=== PATIENT | male | born 1990 | race Caucasian/White ===

== ENCOUNTER → 2016-08-15 | Outpatient (CLI) | payer OTHER ==
--- NOTE | 2016-08-15 14:45 | MR ---
EXAMINATION TYPE: MR tspine/lspine wo con DATE OF EXAM: 08/15/2016 2:17 PM COMPARISON: Prior MRI lumbar spine October 09, 2008. HISTORY: Cervicalgia, thoracic spine pain, low back pain, bilateral lower extremity pain, and possibl e fibromyalgia all per order. Contrast in mid to low back pain for years per patient. TECHNIQUE: Multiplanar, multisequence imaging of thoracic and lumbar spine are performed without cont rast. FINDINGS: T-SPINE: Spinal cord shows normal course, caliber, and signal as it courses the thoracic spine. Vertebral bod y heights and alignment are satisfactory. Disc space heights are fairly well-maintained. Some small p osterior disc herniations are seen in the mid to lower thoracic spine most prominent disc herniation noted T10-T11 level on sagittal image 8. Additional small posterior disc herniations are seen at T7-T 8 and T8-T9 levels. Bone marrow signal intensity is preserved. There is mild multilevel anterior spur ring. There is suggestion of anterior epidural process or lesion T6 mid vertebral body level on sagit stephanie image 8 but this does not reproduce on repeat imaging and is presumed artifactual. Review of the axial images shows additional small right paracentral disc protrusion effacing anterola teral thecal sac at T9-T10 level on image 8 series 601 There is mild to moderate broad-based posterior disc protrusion effacing anterior thecal sac and mild to moderate ligamentous flavum hypertrophy effacing posterior lateral thecal sac on axial image 5 se marco antonio 601 at T10-T11 level. There is mild broad-based posterior disc protrusion and facet arthropathy effacing anterior posterior lateral thecal sac at T12-L1 level on axial image 12. IMPRESSION: Some multilevel degenerative changes in the mid to lower thoracic spine with most pronoun anali findings at T10-T11 level noted as detailed above. L-SPINE: FINDINGS: Sagittal images of the lumbar spine show vertebral body heights and alignment to appear sat isfactory. The intervertebral discs demonstrate normal heights and hydration. No significant posterio r disc herniations are seen on sagittal images. The conus medullaris is normal in position and signal ending at superior L1 vertebral body level. The bone marrow signal intensity is within normal limit s. Axial images show no focal disc disease, or facet degenerative change at any lumbar level. There is no spinal canal stenosis, neural foraminal narrowing, or evidence of nerve root compromise. IMPRESSION: Negative MRI of the lumbar spine. Unremarkable study, no significant change from prior M RI.
== END | disposition home or self-care (01) ==
LOC: RADMRIMAIN 12:06
PROVIDERS: ATTEND Orthopaedic Surgery Orthopaedic Surgery of the Spine
DX: M54.5 Low back pain (principal); M54.6 Pain in thoracic spine
CPT/HCPCS: 72146; 72148

== ENCOUNTER → 2016-10-19 | Outpatient (CLI) | payer OTHER ==
[2016-10-19 17:38] LABS: Basophils % (A) 0 %; CH 31.9; CHCM 33.6; Eosinophils # (A) 0.1 k/uL (0-0.7); Eosinophils % (A) 2 %; HCT 47.9 % (39.0-53.0); HDW 2.44; Luc # (Auto) 0.26; Luc % (Auto) 3; Lymphocytes # (A) 2.1 k/uL (1.0-4.8); Lymphocytes % (A) 23 %; MCH 31.8 pg (25.0-35.0); MCHC 33.3 g/dL (31.0-37.0); MCV 95.4 fL (80.0-100.0); Mean Platelet Volume 7.2; Monocytes # (A) 0.7 k/uL (0-1.0); Monocytes % (A) 7 %; Neutrophils # (A) 6.2 k/uL (1.3-7.7); Neutrophils % (A) 65 %; RBC 5.02 m/uL (4.30-5.90); RDW 13.3 % (11.5-15.5); WBC 9.4 k/uL (3.8-10.6); WBC (Perox) 9.55
[2016-10-19 18:02] LABS: ALT 46 U/L (21-72); AST 24 U/L (17-59); Alkaline Phosphatase 66 U/L (38-126); Anion Gap 12 mmol/L; Blood Urea Nitrogen 20 mg/dL (9-20); C Reactive Protein <5.0 mg/L (<10.0); Calcium 9.5 mg/dL (8.4-10.2); Carbon Dioxide 26 mmol/L (22-30); Chloride 104 mmol/L (98-107); Creatine Kinase 66 U/L (55-170); Glucose 93 mg/dL (74-99); Non-African American GFR(MDRD) >60 (>60 ml/min/1.73 sqM); Potassium 4.4 mmol/L (3.5-5.1); Rheumatoid Factor, Qnt <9 IU/mL (<12); Sodium 142 mmol/L (137-145); Total Bilirubin 0.5 mg/dL (0.2-1.3); Total Protein 7.9 g/dL (6.3-8.2)
[2016-10-19 19:25] LABS: Erythrocyte Sedimentation Rate 2 mm/hr (0-15)
== END | disposition home or self-care (01) ==
LOC: LABWHC1 17:12
PROVIDERS: ATTEND Physician Assistant
DX: M13.0 Polyarthritis, unspecified (principal); E05.90 Thyrotoxicosis, unspecified without thyrotoxic crisis or storm; M79.1 Myalgia
CPT/HCPCS: 36415; 80053; 82085; 82088; 82550; 84439; 84443; 84481; 85025; 85652; 86038; 86140; 86431

== ENCOUNTER 2017-01-12 13:33 | Emergency (ER) | payer OTHER ==
[2017-01-12] MEDS ORDERED: ONDANSETRON 4 MG/2 ML VIAL IVP STA (14:46)
[2017-01-12] MEDS ORDERED: SODIUM CHLORIDE 0.9% 2,000 ML IV STA (14:46)
[2017-01-12] MEDS ORDERED: RX INFO: IV CONTRAST WAS GIVEN 1 EACH MISC MISCELLANE PRN (14:46)
[2017-01-12] MEDS ORDERED: MORPHINE SULFATE 4 MG/ML SYRINGE IV STA (14:46)
--- NOTE | 2017-01-12 14:51 | ED ---
Abdominal Pain HPI - General Chief Complaint: Abdominal Pain Stated Complaint: Abd Pain Source: patient Mode of arrival: ambulatory Limitations: no limitations - History of Present Illness Initial Comments: Patient is a 26-year-old male who presents for evaluation for generalized abdominal pain that is progressively worsening over the last 2 days. Past medical history as below. Patient stated that the pain started roughly 2 days ago. He has associated nausea and vomiting. He has had 5 episodes of emesis which was mainly's stomach contents. No sick contacts. Denies any trauma to the abdomen. He had a normal bowel movement this morning. He has decreased appetite over this time.. Laying down seems to make the pain better. Getting up moving around and walking seems to make the pain worse. He is passing gas. There is a strong family history of gallbladder issues. Smokes marijuana occasionally but nothing recently. Smokes cigarettes. No alcohol use. He denies fever, chills, headache, changes of vision, URI symptoms, shortness breath, cough, chest pain, diarrhea, pain or burning with urination. - Related Data Previous Rx's Medication Instructions Recorded Ondansetron Odt [Zofran Odt] 4 mg PO TID PRN #10 tab 01/12/17 Allergies Allergy/AdvReac Type Severity Reaction Status Date / Time sulfamethoxazole Allergy Unknown Verified 01/12/17 15:10 [From Bactrim] trimethoprim [From Bactrim] Allergy Unknown Verified 01/12/17 15:10 Review of Systems ROS Statement: Those systems with pertinent positive or pertinent negative responses have been documented in the HPI. ROS Other: All systems not noted in ROS Statement are negative. Past Medical History Past Medical History: No Reported History History of Any Multi-Drug Resistant Organisms: None Reported Past Surgical History: No Surgical Hx Reported Past Psychological History: Depression Smoking Status: Current every day smoker Past Alcohol Use History: None Reported Past Drug Use History: None Reported General Exam Limitations: no limitations General appearance: alert, in no apparent distress, other (In position on his left side complaining of pain.) Head exam: Present: atraumatic, normocephalic, normal inspection Eye exam: Present: normal appearance, PERRL, EOMI. Absent: scleral icterus, conjunctival injection, periorbital swelling ENT exam: Present: normal exam, mucous membranes dry, mucous membranes moist Neck exam: Present: normal inspection. Absent: tenderness, meningismus, lymphadenopathy Respiratory exam: Present: normal lung sounds bilaterally. Absent: respiratory distress, wheezes, rales, rhonchi, stridor Cardiovascular Exam: Present: regular rate, normal rhythm, normal heart sounds. Absent: systolic murmur, diastolic murmur, rubs, gallop, clicks GI/Abdominal exam: Present: soft, tenderness, normal bowel sounds, hypoactive bowel sounds, other (Tenderness with palpation just above the umbilicus and to the left of the umbilicus. He has a somewhat firm abdomen but non-peritoneal. No rebound tenderness. Negative McBurney sign. Negative Eduardo sign. Negative Rovsing sign.). Absent: distended, guarding, rebound, rigid Extremities exam: Present: normal inspection, full ROM, normal capillary refill. Absent: tenderness, pedal edema, joint swelling, calf tenderness Back exam: Present: normal inspection, other (No midline tenderness.) Neurological exam: Present: alert, oriented X3, CN II-XII intact Psychiatric exam: Present: normal affect, normal mood Skin exam: Present: warm, dry, intact, normal color. Absent: rash Course Vital Signs 01/12/17 01/12/17 01/12/17 14:04 16:00 16:20 Temperature 98.1 F 98.1 F 98.7 F Pulse Rate 57 L 52 L 52 L Respiratory 17 18 15 Rate Blood Pressure 137/90 131/72 135/71 O2 Sat by Pulse 100 Oximetry Medical Decision Making - Medical Decision Making 1445: Patient is a 26-year-old male who presents for evaluation for 2 day's history of progressively worsening abdominal pain with associated nausea and vomiting. History is somewhat concerning for retrocecal appendicitis versus gallbladder pathology. However his physical exam is not consistent with either. His abdomen is somewhat firm. There are hypoactive bowel sounds. He had a normal bowel movement this morning though. Because of the inconsistent physical exam, will order CT abdomen and pelvis with IV contrast. We'll also order abdominal labs with 2 L IV fluid bolus for dry mucous membranes, morphine , Zofran and reevaluate. 1520: CBC within normal limits. Awaiting CT imaging and rest of laboratory studies. 1552: Reviewed CT imaging. No acute inflammatory process. There were noted to have some dilated small bowel loops but no signs of obstruction. No free air. Normal-appearing appendix. Laboratory studies within normal limits. Discussed all the results with the patient. Discussed signs and symptoms of acute appendicitis and gallbladder pathology. Encourage close follow-up with primary care physician. Preferably in the next couple of days. Keep up with fluids. [place] diet. We'll discharge home with Zofran. I reevaluated his abdomen is soft. The pain is cut in half per the patient. No longer nauseous or vomiting. He is comfortable with discharge home and follow-up. I discussed further signs and symptoms on when to return to emergency department for further evaluation. He is comfortable with discharge home and will follow-up. - Lab Data Result diagrams: 01/12/17 15:00 01/12/17 15:00 Lab Results 01/12/17 01/12/17 01/12/17 Range/Units 15:00 15:00 16:00 WBC 10.9 H (3.8-10.6) k/uL RBC 5.05 (4.30-5.90) m/uL Hgb 15.8 (13.0-17.5) gm/dL Hct 45.3 (39.0-53.0) % MCV 89.6 (80.0-100.0) fL MCH 31.2 (25.0-35.0) pg MCHC 34.8 (31.0-37.0) g/dL RDW 13.2 (11.5-15.5) % Plt Count 240 (150-450) k/uL Neutrophils % 73 % Lymphocytes % 15 % Monocytes % 8 % Eosinophils % 1 % Basophils % 0 % Neutrophils # 8.0 H (1.3-7.7) k/uL Lymphocytes # 1.7 (1.0-4.8) k/uL Monocytes # 0.9 (0-1.0) k/uL Eosinophils # 0.1 (0-0.7) k/uL Basophils # 0.0 (0-0.2) k/uL Sodium 142 (137-145) mmol/L Potassium 4.1 (3.5-5.1) mmol/L Chloride 106 (98-107) mmol/L Carbon Dioxide 26 (22-30) mmol/L Anion Gap 10 mmol/L BUN 13 (9-20) mg/dL Creatinine 0.97 (0.66-1.25) mg/dL Est GFR (MDRD) Af Amer >60 (>60 ml/min/1.73 sqM) Est GFR (MDRD) Non-Af >60 (>60 ml/min/1.73 sqM) Glucose 92 (74-99) mg/dL Calcium 9.2 (8.4-10.2) mg/dL Total Bilirubin 0.5 (0.2-1.3) mg/dL AST 18 (17-59) U/L ALT 42 (21-72) U/L Alkaline Phosphatase 69 (38-126) U/L Total Protein 7.1 (6.3-8.2) g/dL Albumin 4.3 (3.5-5.0) g/dL Lipase 56 (23-300) U/L Urine Color Yellow Urine Appearance Clear (Clear) Urine pH 6.5 (5.0-8.0) Ur Specific [place] 1.024 (1.001-1.035) Urine Protein Negative (Negative) Urine Glucose (UA) Negative (Negative) Urine Ketones Negative (Negative) Urine Blood Negative (Negative) Urine Nitrite Negative (Negative) Urine Bilirubin Negative (Negative) Urine Urobilinogen <2.0 (<2.0) mg/dL Ur Leukocyte Esterase Negative (Negative) Disposition Clinical Impression: Nausea and vomiting, Abdominal pain Disposition: HOME SELF-CARE Instructions: Abdominal Pain (ED) Prescriptions: Ondansetron Odt [Zofran Odt] 4 mg PO TID PRN #10 tab PRN Reason: Nausea And Vomiting Referrals: Leoncio Ward MD [Primary Care Provider] - 1-2 days
[2017-01-12 15:12] LABS: Basophils % (A) 0 %; CH 31.3; CHCM 35.1; Eosinophils # (A) 0.1 k/uL (0-0.7); Eosinophils % (A) 1 %; HCT 45.3 % (39.0-53.0); HDW 2.49; HGB 15.8 gm/dL (13.0-17.5); Luc # (Auto) 0.23; Luc % (Auto) 2; Lymphocytes # (A) 1.7 k/uL (1.0-4.8); Lymphocytes % (A) 15 %; MCH 31.2 pg (25.0-35.0); MCHC 34.8 g/dL (31.0-37.0); MCV 89.6 fL (80.0-100.0); Mean Platelet Volume 7.4; Monocytes # (A) 0.9 k/uL (0-1.0); Monocytes % (A) 8 %; Neutrophils % (A) 73 %; RBC 5.05 m/uL (4.30-5.90); RDW 13.2 % (11.5-15.5); WBC 10.9 k/uL (3.8-10.6); WBC (Perox) 10.75
[2017-01-12 15:21] LABS: ALT 42 U/L (21-72); AST 18 U/L (17-59); Alkaline Phosphatase 69 U/L (38-126); Anion Gap 10 mmol/L; Blood Urea Nitrogen 13 mg/dL (9-20); Calcium 9.2 mg/dL (8.4-10.2); Carbon Dioxide 26 mmol/L (22-30); Chloride 106 mmol/L (98-107); Glucose 92 mg/dL (74-99); Non-African American GFR(MDRD) >60 (>60 ml/min/1.73 sqM); Potassium 4.1 mmol/L (3.5-5.1); Sodium 142 mmol/L (137-145); Total Bilirubin 0.5 mg/dL (0.2-1.3); Total Protein 7.1 g/dL (6.3-8.2)
--- NOTE | 2017-01-12 15:38 | CT ---
EXAMINATION TYPE: CT abdomen pelvis w con DATE OF EXAM: 01/12/2017 COMPARISON: NONE HISTORY: LUQ pain, nausea CT DLP: 422.5 mGycm CONTRAST: CT scan of the abdomen and pelvis is performed without Oral Contrast and with IV Contrast, patient in jected with 100 mL of Omnipaque 300. FINDINGS: LUNG BASES-: No visible nodule. No infiltrate. LIVER/GB: No calcified gallstones. No space occupying hepatic lesion. Biliary tree is of normal ca liber. PANCREAS: No inflammation. No distinct mass. SPLEEN: No splenic enlargement. No lesion seen. ADRENALS: No nodule. No thickening. KIDNEYS/BLADDER: No hydronephrosis. No nephrolithiasis. No disctinct renal mass. Urinary bladder g rossly unremarkable. BOWEL: Normal appendix. Fluid distended mid and distal small bowel loops and right hemicolon. The fin dings are nonspecific and could be related to gastroenteritis. No evidence for obstruction. No free a ir or free fluid. Small sliding-type. GENITAL ORGANS: No gross abnormality. LYMPH NODES: No greater than 1cm abdominal or pelvic lymph nodes are appreciated. AORTA: No significant abnormality. OSSEOUS STRUCTURES: No significant abnormality is seen. OTHER: No significant additional abnormality is seen. IMPRESSION: 1. Fluid distended mid and distal small bowel loops and right hemicolon. The findings are nonspecific and could be related to gastroenteritis.
[2017-01-12 16:01] VITALS: PULSE 52
[2017-01-12 16:22] VITALS: BP 135/71; RESP 15; TEMP 98.7
[2017-01-12 16:25] LABS: Appearance,Urine Clear (Clear); Bilirubin,Urine Negative (Negative); Glucose,Urine (UA) Negative (Negative); Ketones,Urine Negative (Negative); Leukocyte Esterase,Urine Negative (Negative); Nitrite,Urine Negative (Negative); PH, Urine 6.5 (5.0-8.0); Protein,Urine Negative (Negative); Specific Gravity,Urine 1.024 (1.001-1.035); UA Billing (MACRO vs. MICRO) CHEM; Urobilinogen,Urine <2.0 mg/dL (<2.0)
== END 2017-01-12 17:13 | disposition home or self-care (01) ==
LOC: SUPCPDRO 13:33 → EC 13:33
DX: R10.84 Generalized abdominal pain (principal); R11.2 Nausea with vomiting, unspecified; R63.8 Other symptoms and signs concerning food and fluid intake; K63.89 Other specified diseases of intestine; F17.210 Nicotine dependence, cigarettes, uncomplicated; Z88.1 Allergy status to other antibiotic agents; Z83.79 Family history of other diseases of the digestive system
CPT/HCPCS: 36415; 80053; 83690; 85025; 81003; 74177; 99284; 96374; 96375; 96361 ×2; J2270; J2405; Q9967

== ENCOUNTER → 2017-02-06 | Outpatient (CLI) | payer OTHER ==
--- NOTE | 2017-02-06 14:05 | MR ---
EXAMINATION TYPE: MR cervical spine wo con DATE OF EXAM: 02/06/2017 COMPARISON: NONE HISTORY: Chronic neck pain TECHNIQUE: Multiplanar, multisequence images of the cervical spine were acquired. C2-C3: No evidence for degenerative disc disease. No disc bulge/herniation or protrusion. No Canal stenosis. Foramina are patent bilaterally. C3-C4: No evidence for degenerative disc disease. No disc bulge/herniation or protrusion. No Canal stenosis. Foramina are patent bilaterally. C4-C5: There is a small central posterior disc osteophyte complex. The central canal is patent. No ne ural foraminal narrowing. C5-C6: There is a left eccentric disc herniation effacing the ventral thecal sac and abutting the bo tral cord. No abnormal cord signal. This creates mild left neural foraminal narrowing. C6-C7: There is a small central disc herniation narrowing the ventral thecal space and creating mild central canal stenosis. No neural foraminal narrowing. No abnormal cord signal. C7-T1: No evidence for degenerative disc disease. No disc bulge/herniation or protrusion. No Canal stenosis. Foramina are patent bilaterally. Cervical segments are intact. There is normal alignment. Cervical spinal cord is of normal signal. Craniovertebral junction relationships are within normal limits. IMPRESSION: 1. Left eccentric disc herniation creating mild central canal stenosis and mild left neural foraminal narrowing at C5-C6. 2. Small central disc herniation creating mild central canal stenosis at C6-C7.
== END | disposition home or self-care (01) ==
LOC: RADMRIMAIN 12:25
PROVIDERS: ATTEND Psychiatry & Neurology Neurology
DX: M99.71 Connective tissue and disc stenosis of intervertebral foramina of cervical region (principal); M50.322 Other cervical disc degeneration at C5-C6 level
CPT/HCPCS: 72141

== ENCOUNTER → 2017-10-07 | Outpatient (CLI) | payer OTHER ==
--- NOTE | 2017-10-07 15:02 | MR ---
EXAMINATION TYPE: MR cervical spine wo con DATE OF EXAM: 10/07/2017 COMPARISON: NONE HISTORY: Neck pain, headaches, BUE weakness x 2 years TECHNIQUE: Multiplanar, multisequence images of the cervical spine were acquired. C2-C3: No evidence for degenerative disc disease. No disc bulge/herniation or protrusion. No Canal stenosis. Foramina are patent bilaterally. C3-C4: No evidence for degenerative disc disease. No disc bulge/herniation or protrusion. No Canal stenosis. Foramina are patent bilaterally. C4-C5: There is a small central disc protrusion. Mild effacement of thecal sac. Mild bilateral uncove rtebral joint hypertrophy. No canal stenosis or foraminal encroachment. C5-C6: There is a broad-based central and left paracentral disc herniation with moderate effacement of thecal sac. Neural foramina are patent. Disc desiccation noted. C6-C7: Disc desiccation with a broad-based central disc protrusion or herniation resulting in moderat e effacement of thecal sac and abutting the anterior margin the spinal cord C7-T1: No evidence for degenerative disc disease. No disc bulge/herniation or protrusion. No Canal stenosis. Foramina are patent bilaterally. Cervical segments are intact. There is normal alignment. Cervical spinal cord is of normal signal. Craniovertebral junction relationships are within normal limits. IMPRESSION: 1. At C5-C6: There is a broad-based central and left paracentral disc herniation with moderate effac ement of thecal sac. Neural foramina are patent. 2. Broad-based central disc protrusion or herniation C6-C7 with moderate effacement of thecal sac and abutting the anterior margin of the spinal cord. No foraminal encroachment. 3. Small focal central disc protrusion C4-C5 effacing the thecal sac but no foraminal encroachment or spinal cord contact.
== END | disposition home or self-care (01) ==
LOC: RADMRIMAIN 13:36
PROVIDERS: ATTEND Neurological Surgery
DX: M50.221 Other cervical disc displacement at C4-C5 level (principal)
CPT/HCPCS: 72141

== ENCOUNTER 2018-02-12 18:05 | Emergency (ER) | payer OTHER ==
[2018-02-12 18:23] VITALS: RESP 18
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
[2018-02-12 21:21] VITALS: BP 119/70; PULSE 57; TEMP 98.1
== END 2018-02-12 21:21 | disposition home or self-care (01) ==
LOC: EC 18:05
DX: F32.9 Major depressive disorder, single episode, unspecified (principal); R45.851 Suicidal ideations; F17.200 Nicotine dependence, unspecified, uncomplicated; Z79.899 Other long term (current) drug therapy; Z88.2 Allergy status to sulfonamides
CPT/HCPCS: 82075; 99285

== ENCOUNTER 2018-02-14 12:03 | Emergency (ER) | payer OTHER ==
[2018-02-14 13:50] LABS: Amphetamine Screen,Urine Not Detected (NotDetected); Barbiturate Screen,Urine Not Detected (NotDetected); Benzodiazepines Screen,Urine Detected (NotDetected); Cocaine Screen,Urine Not Detected (NotDetected); Methadone Screen, Urine Not Detected (NotDetected); Opiate Screen,Urine Not Detected (NotDetected); Oxycodone Screen, Urine Not Detected (NotDetected); Phencyclidine Screen,Urine Not Detected (NotDetected); Tricyclic Antidepressant,Urine Not Detected (NotDetected); Urn Cannabinoid Scrn Detected (NotDetected)
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
[2018-02-14] MEDS ORDERED: IBUPROFEN 600 MG TAB PO STA (15:32)
[2018-02-14 17:51] LABS: Basophils % (A) 0 %; Eosinophils # (A) 0.2 k/uL (0-0.7); Eosinophils % (A) 3 %; HCT 43.4 % (39.0-53.0); HGB 14.5 gm/dL (13.0-17.5); Lymphocytes % (A) 28 %; MCH 30.4 pg (25.0-35.0); MCHC 33.4 g/dL (31.0-37.0); Mean Platelet Volume 7.6; Monocytes # (A) 0.5 k/uL (0-1.0); Monocytes % (A) 7 %; Neutrophils # (A) 4.4 k/uL (1.3-7.7); Neutrophils % (A) 60 %; Platelet Count 208 k/uL (150-450); RBC 4.77 m/uL (4.30-5.90); RDW 12.7 % (11.5-15.5); WBC 7.4 k/uL (3.8-10.6)
[2018-02-14 18:00] LABS: ALT 29 U/L (21-72); AST 15 U/L (17-59); Albumin 3.6 g/dL (3.5-5.0); Alkaline Phosphatase 53 U/L (38-126); Anion Gap 6 mmol/L; Blood Urea Nitrogen 13 mg/dL (9-20); Calcium 8.6 mg/dL (8.4-10.2); Carbon Dioxide 27 mmol/L (22-30); Chloride 107 mmol/L (98-107); Glucose 115 mg/dL (74-99); Sodium 140 mmol/L (137-145); Total Bilirubin 0.3 mg/dL (0.2-1.3); Total Protein 5.8 g/dL (6.3-8.2)
[2018-02-14 18:29] LABS: Appearance,Urine Clear (Clear); Bilirubin,Urine Negative (Negative); Blood,Urine Negative (Negative); Color,Urine Yellow; Glucose,Urine (UA) Negative (Negative); Ketones,Urine Negative (Negative); Leukocyte Esterase,Urine Negative (Negative); Nitrite,Urine Negative (Negative); Protein,Urine Negative (Negative); Specific Gravity,Urine 1.017 (1.001-1.035); Urobilinogen,Urine <2.0 mg/dL (<2.0)
[2018-02-15 01:10] VITALS: RESP 18
[2018-02-15 02:37] VITALS: BP 142/86; PULSE 61; TEMP 97
[2018-02-15] MEDS ORDERED: NICOTINE 21MG/24HR PATCH TRANSDERM STA (02:37)
[2018-02-15] MEDS ORDERED: DICYCLOMINE 20 MG TAB PO STA (02:46)
[2018-02-15] MEDS ORDERED: ALPRAZolam 1 MG TAB PO STA (02:46)
== END 2018-02-15 03:00 ==
LOC: EC 12:03 → SUPCPDRO 12:03 → EC 02-15 03:00
DX: F31.9 Bipolar disorder, unspecified (principal); R45.851 Suicidal ideations; F41.9 Anxiety disorder, unspecified; F43.10 Post-traumatic stress disorder, unspecified; F17.200 Nicotine dependence, unspecified, uncomplicated; Z88.1 Allergy status to other antibiotic agents; Z88.2 Allergy status to sulfonamides
CPT/HCPCS: 82075; 36415; 80053; 85025; 81003; 80306; 99285; S4990

== ENCOUNTER 2018-08-18 09:59 | Emergency (ER) | payer OTHER ==
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
[2018-08-18 12:35] VITALS: BP 124/85; PULSE 75; RESP 16; TEMP 98
== END 2018-08-18 12:34 | disposition home or self-care (01) ==
LOC: EC 09:59
DX: S16.1XXA Strain of muscle, fascia and tendon at neck level, initial encounter (principal); M50.222 Other cervical disc displacement at C5-C6 level; M50.21 Other cervical disc displacement, high cervical region; Q85.1 Tuberous sclerosis; F41.9 Anxiety disorder, unspecified; F17.200 Nicotine dependence, unspecified, uncomplicated; Z88.2 Allergy status to sulfonamides; Z88.1 Allergy status to other antibiotic agents; V89.2XXA Person injured in unspecified motor-vehicle accident, traffic, initial encounter; W22.11XA Striking against or struck by driver side automobile airbag, initial encounter; Y92.410 Unspecified street and highway as the place of occurrence of the external cause
CPT/HCPCS: 70450; 72125; 99284

== ENCOUNTER 2021-04-05 13:29 | Emergency (ER) | payer BC, OTHER ==
[2021-04-05 14:02] VITALS: BP 118/73; PULSE 95; RESP 16; TEMP 98.9
--- NOTE | 2021-04-05 15:42 | ED ---
URI HPI - General Chief Complaint: Upper Respiratory Infection Stated Complaint: Fever,Congestion Time Seen by Provider: 04/05/21 14:10 Source: patient, RN notes reviewed Mode of arrival: ambulatory Limitations: no limitations - History of Present Illness Initial Comments: Patient is a 30-year-old male presenting to the emergency department with fever, cough and congestion over the past 2 days. His sons are here in the ER as well with similar symptoms. He's had a little bit of diarrhea, a mild cough. He still eating and drinking history as well as COPD, he is a smoker. He denies a cold vaccine. Denies any difficulty breathing, no chest pain. Denies any nausea or vomiting. He has no further complaints at this time. His vitals are stable upon arrival. - Related Data Home Medications Medication Instructions Recorded Confirmed Diazepam [Valium] 10 mg PO TID PRN 08/18/18 08/18/18 Previous Rx's Medication Instructions Recorded Cyclobenzaprine [Flexeril] 10 mg PO TID #12 tab 08/18/18 Ibuprofen 600 mg PO TID #20 tablet 08/18/18 Allergies Allergy/AdvReac Type Severity Reaction Status Date / Time sulfamethoxazole AdvReac Diarrhea Verified 04/05/21 14:01 [From Bactrim] trimethoprim [From Bactrim] AdvReac Diarrhea Verified 04/05/21 14:01 Review of Systems ROS Statement: Those systems with pertinent positive or pertinent negative responses have been documented in the HPI. ROS Other: All systems not noted in ROS Statement are negative. Past Medical History Past Medical History: No Reported History History of Any Multi-Drug Resistant Organisms: None Reported Past Surgical History: No Surgical Hx Reported Past Psychological History: Anxiety, Depression, PTSD Smoking Status: Current every day smoker Past Alcohol Use History: None Reported Past Drug Use History: Marijuana General Exam - General Exam Comments Initial Comments: GENERAL: Patient is well-developed and well-nourished. Patient is nontoxic and in no acute distress. HEAD: Atraumatic, normocephalic. EYES: Pupils equal round and reactive to light, extraocular movements intact, sclera anicteric, conjunctiva are normal. Eyelids were unremarkable. ENT: Nares patent, oropharynx clear without exudates. Moist mucous membranes. NECK: Normal range of motion, supple without lymphadenopathy or JVD. LUNGS: Unlabored respirations. Breath sounds clear to auscultation bilaterally and equal. No wheezes rales or rhonchi. HEART: Regular rate and rhythm without murmurs, rubs or gallops. ABDOMEN: Soft, nontender, normoactive bowel sounds. No guarding, no rebound. No masses appreciated. MUSCULOSKELETAL: Normal extremities with adequate strength and normal range of motion, no pitting or edema. No clubbing or cyanosis. NEUROLOGICAL: Patient is alert and oriented x 3. SKIN: Warm, Dry, normal turgor, no rashes or lesions noted. Limitations: no limitations Course Vital Signs 04/05/21 13:58 Temperature 98.9 F Pulse Rate 95 Respiratory 16 Rate Blood Pressure 118/73 O2 Sat by Pulse 96 Oximetry Medical Decision Making - Medical Decision Making Patient is a 30-year-old male here with a viral type symptoms just cough, congestion over the past 2 days. His vitals are stable today, his exam is unremarkable. His 2 sons are here with him today and tested positive for RSV. Swabs are negative for covid, influenza, RSV. I discussed with patient this is still most likely something viral. I recommended Tylenol and ibuprofen for his discomfort. He can follow-up with his family doctor, return parameters were discussed with him and he verbalized understanding. Case discussed with Dr. Pierce. - Lab Data Lab Results 04/05/21 Range/Units 14:03 Influenza Type A (PCR) Not Detected (Not Detectd) Influenza Type B (PCR) Not Detected (Not Detectd) RSV (PCR) Not Detected (Not Detectd) SARS-CoV-2 (PCR) Not Detected (Not Detectd) Disposition Clinical Impression: Viral respiratory illness Disposition: HOME SELF-CARE Condition: Stable Instructions (If sedation given, give patient instructions): Upper Respiratory Infection (ED) Additional Instructions: Please return to the Emergency Department if symptoms worsen or any other concerns. Recommend Tylenol and Motrin for any discomfort. Lots of fluids. Follow-up with family doctor. Is patient prescribed a controlled substance at d/c from ED?: No Referrals: None,Stated [Primary Care Provider] - 1-2 days Time of Disposition: 16:04
== END 2021-04-05 16:09 | disposition home or self-care (01) ==
LOC: EC 13:29
DX: J98.9 Respiratory disorder, unspecified (principal); F17.200 Nicotine dependence, unspecified, uncomplicated; J44.9 Chronic obstructive pulmonary disease, unspecified; Z88.1 Allergy status to other antibiotic agents; Z88.2 Allergy status to sulfonamides; Z20.822 Contact with and (suspected) exposure to COVID-19
CPT/HCPCS: 87636; 99283

== ENCOUNTER 2023-01-17 20:52 | Emergency (ER) | payer BC ==
[2023-01-17 20:56] VITALS: BP 118/78; PULSE 75; RESP 18
[2023-01-17] MEDS ORDERED: KETOROLAC 15 MG/ML 1 ML VIAL IM STA (21:19)
--- NOTE | 2023-01-17 21:28 | ED ---
General Adult HPI - General Chief complaint: Dental/Oral Stated complaint: Toothache Time Seen by Provider: 01/17/23 21:06 Source: patient, RN notes reviewed Mode of arrival: ambulatory Limitations: no limitations - History of Present Illness Initial comments: 32-year-old male with no significant past medical history presents to the emergency department with a chief complaint of dental pain. Patient reports that he chipped his right foot into some weeks ago while eating a sandwich. He has not been able to see his dentist as he does not have insurance. She reports was smoking the site. He denies any fever, chills, facial swelling, shortness of breath, dyspnea. He does report that he smokes E cigarette - Related Data Home Medications Medication Instructions Recorded Confirmed diazePAM [Valium] 10 mg PO TID PRN 08/18/18 08/18/18 Previous Rx's Medication Instructions Recorded Cyclobenzaprine [Flexeril] 10 mg PO TID #12 tab 08/18/18 Ibuprofen 600 mg PO TID #20 tablet 08/18/18 Amoxic-Pot Clav 875-125Mg 1 tab PO Q12HR #20 tab 01/17/23 [Augmentin 875-125] Ibuprofen [Motrin] 800 mg PO Q6HR #30 tab 01/17/23 Allergies Allergy/AdvReac Type Severity Reaction Status Date / Time sulfamethoxazole AdvReac Diarrhea Verified 01/17/23 20:55 [From Bactrim] trimethoprim [From Bactrim] AdvReac Diarrhea Verified 01/17/23 20:55 Review of Systems ROS Statement: Those systems with pertinent positive or pertinent negative responses have been documented in the HPI. ROS Other: All systems not noted in ROS Statement are negative. Past Medical History Past Medical History: No Reported History History of Any Multi-Drug Resistant Organisms: None Reported Past Surgical History: No Surgical Hx Reported Past Psychological History: Anxiety, Depression, PTSD Smoking Status: Former smoker Past Alcohol Use History: None Reported Past Drug Use History: Marijuana General Exam - General Exam Comments Initial Comments: General: Alert, in no acute distress Head: atraumatic normocephalic. Eyes PERRL, EOMI intact, mucous membranes moist, oral cavity with generalized poor dentition. Tooth 8 with small residual tooth no evidence of dental abscess Respiratory: Lungs clear to auscultation bilaterally Cardiovascular: Rate regular rate and rhythm Abdominal: Soft without guarding or rebound Extremities: Normal inspection with full range of motion and normal capillary refill Neuroogic: alert and oriented 3, CN II-XII intact, able to ambulate with steady gait Skin: warm dry and intact with normal color Limitations: no limitations Course Vital Signs 01/17/23 01/17/23 20:54 22:08 Temperature 98.4 F 98.1 F Pulse Rate 75 Respiratory 18 Rate Blood Pressure 118/78 O2 Sat by Pulse 99 Oximetry Medical Decision Making - Medical Decision Making Was pt. sent in by a medical professional or institution (, [facility], [employer] [employer], urgent care, hospital, or penitentiary...) When possible be specific @ -[No] Did you speak to anyone other than the patient for history (EMS, parent, family, police, friend...)? What history was obtained from this source @ -[No] Did you review nursing and triage notes (agree or disagree)? Why? @ -[I reviewed and agree with nursing and triage notes] Were old charts reviewed (outside hosp., previous admission, EMS record, old EKG, old radiological studies, urgent care reports/EKG's, penitentiary records)? Report findings @ -[No old charts were reviewed] Differential Diagnosis (chest pain, altered mental status, abdominal pain women, abdominal pain men, vaginal bleeding, weakness, fever, dyspnea, syncope, headache, dizziness, GI bleed, back pain, seizure, CVA, palpatations, mental health, musculoskeletal)? @ -[not applicable] EKG interpreted by me (3pts min.). @ -[As above] X-rays interpreted by me (1pt min.). @ -[None done] CT interpreted by me (1pt min.). @ -[None done] U/S interpreted by me (1pt. min.). @ -[None done] What testing was considered but not performed or refused? (CT, X-rays, U/S, labs)? Why? @ -[None] What meds were considered but not given or refused? Why? @ -[None] Did you discuss the management of the patient with other professionals (pro fessionals i.e. , [facility], [employer] [employer], lab, RT, psych nurse, social work supervisor, information architect, teacher, personal banking officer, immigration case worker)? Give summary @ -[No] Was smoking cessation discussed for >3mins.? @ -[No] Was critical care preformed (if so, how long)? @ -[No] Were there social determinants of health that impacted care today? How? (Homelessness, low income, unemployed, alcoholism, drug addiction, transportation, low edu. Level, literacy, decrease access to med. care, senior care, rehab)? @ -[No] Was there de-escalation of care discussed even if they declined (Discuss DNR or withdrawal of care, Hospice)? DNR status @ -[No] What co-morbidities impacted this encounter? (DM, HTN, Smoking, COPD, CAD, Cancer, CVA, ARF, Chemo, Hep., AIDS, mental health diagnosis, sleep apnea, morbid obesity)? @ -[None] Was patient admitted / discharged? Hospital course, mention meds given and route, prescriptions, significant lab abnormalities, going to OR and other pertinent info. @ -Discharged. The pleasant 32-year-old male who presents emergency department with dental pain. Patient had a thorough history and physical exam performed on the ED. Physical exam reveals a fractured tooth at tooth 9 without any evidence of dental fractures marked facial swelling. Airway remained to be patent. Patient was given toradol with symptomatic relief. He was provided a prescription for augmentin. Return precautions were discussed at length. He should discharged in stable condition. Case discussed with Dr. [place] [facility] who agrees with plan Undiagnosed new problem with uncertain prognosis? @ -[No] Drug Therapy requiring intensive monitoring for toxicity (Heparin, Nitro, Insulin, Cardizem)? @ -[No] Were any procedures done? @ -[No] Diagnosis/symptom? @ -Dental Pain Acute, or Chronic, or Acute on Chronic? @ -Acute Uncomplicated (without systemic symptoms) or Complicated (systemic symptoms)? @ -Uncomplicated Side effects of treatment? @ -[No] Exacerbation, Progression, or Severe Exacerbation? @ -[No] Poses a threat to life or bodily function? How? (Chest pain, [place], [place], pneumonia, PE, COPD, DKA, ARF, appy, cholecystitis, CVA, Diverticulitis, Homicidal, Suicidal, threat to staff... and all critical care pts) @ -Low likelihood Disposition Clinical Impression: Fractured tooth Disposition: HOME SELF-CARE Condition: Stable Instructions (If sedation given, give patient instructions): Toothache (ED) Additional Instructions: Please follow-up with her dentist as soon as convenience Please return to the nearest emergency department if fever, facial swelling develop Prescriptions: Amoxic-Pot Clav 875-125Mg [Augmentin 875-125] 1 tab PO Q12HR #20 tab Ibuprofen [Motrin] 800 mg PO Q6HR #30 tab Is patient prescribed a controlled substance at d/c from ED?: No Referrals: None,Stated [Primary Care Provider] - 1-2 days Forms: Work/School Release Time of Disposition: 22:01
[2023-01-17 22:10] VITALS: TEMP 98.1
== END 2023-01-17 22:10 | disposition home or self-care (01) ==
LOC: EC 20:52
DX: S02.5XXA Fracture of tooth (traumatic), initial encounter for closed fracture (principal); F12.90 Cannabis use, unspecified, uncomplicated; Z87.891 Personal history of nicotine dependence; F41.9 Anxiety disorder, unspecified; F32.A Depression, unspecified; Z79.899 Other long term (current) drug therapy; Z88.1 Allergy status to other antibiotic agents; Z88.2 Allergy status to sulfonamides; X58.XXXA Exposure to other specified factors, initial encounter
CPT/HCPCS: 99283; 96372; J1885

== ENCOUNTER → 2024-11-05 | Outpatient (CLI) | payer OTHER ==
--- NOTE | 2024-11-05 14:46 | XR ---
EXAMINATION TYPE: XR scoliosis survey DATE OF EXAM: 11/05/2024 COMPARISON: NONE CLINICAL INDICATION: Male, 34 years old with history of G89.29 OTHER CHRONIC PAIN M54.9 DORSALGIA, UN SPECI; TECHNIQUE: Scoliosis survey obtained of the thoracolumbar spine. FINDINGS: There is mild curvature of the thoracolumbar spine convex to the right of less than 10 degr ees.There is mild discogenic disc space narrowing spondylolisthesis. No fracture or malalignment. IMPRESSION: As above [facility], , 11/05/2024 2:44 PM
== END | disposition home or self-care (01) ==
LOC: RADXRMAIN 14:25
PROVIDERS: ATTEND Family Medicine
DX: M41.85 Other forms of scoliosis, thoracolumbar region (principal)
CPT/HCPCS: 72082